=== PATIENT | male | born 1960 | race Caucasian/White ===

== ENCOUNTER 2017-02-14 10:41 | Emergency (ER) | payer OTHER ==
[~2017-02-14] VITALS: Ht 193 cm; Wt 120.2 kg
[~2017-02-14 10:41] MED LIST: ADVIL200 M2 PO; ANTIVERT 25 MG25 M1 PO; COLCRYS0.6 M1 PO; LIPITOR40 M1 PO; PERCOCET 325 MG1 TA2 PO; PROTONIX 40MG T40 MG PO; VITAMIN B-121000 MC3 PO; ZYRTEC10 M3 PO
--- NOTE | 2017-02-14 11:31 | ED GENERAL ADULT ---
History of Present Illness General Chief Complaint: Foot or Ankle Injury Stated Complaint: LEFT FOOT PAIN X2 DAYS Source: patient Exam Limitations: no limitations Vital Signs & Intake/Output Vital Signs & Intake/Output Vital Signs Date Time Temp Pulse Resp B/P B/P Pulse O2 O2 Flow FiO2 Mean Ox Delivery Rate 02/14 1252 98.7 85 18 134/80 96 Room Air 02/14 1102 98.3 84 20 157/80 96 Room Air Allergies Coded Allergies: naproxen (From NAPROSYN) (ABD PAIN 12/02/15) Reconcile Medications Atorvastatin Calcium (Lipitor) 40 MG TABLET 1 TAB PO DAILY CHOLESTEROL ( Reported) Cetirizine HCl (Zyrtec) 10 MG TABLET 1 TAB PO DAILY ALLERGIES (Reported) Colchicine (Colcrys) 0.6 MG TABLET 1 TAB PO DAILY PRN GOUT (Reported) Cyanocobalamin (Vitamin B-12) 1,000 MCG TABLET 1 TAB PO DAILY VITAMIN SUPPORT (Reported) Ibuprofen (Advil) 200 MG TABLET 4 TAB PO DAILY PRN PAIN (Reported) Oxycodone HCl/Acetaminophen (Percocet 5-325 MG Tablet) 5 MG-325 MG TABLET 1 TAB PO BID PAIN Triage Note: PT TO ED C/O LEFT FOOT PAIN X 2 DAYS, STATES BOTTOM OF FOOT HURTS. DENIES OBVIOUS INJURY. PT STATES 1 WEEK AGO PAIN WAS IN HIS ANKLE, PAIN IS BETTER IN THE ANKLE. DECLINING MEDS IN TRIAGE, TOOK 800MG MOTRIN AT 0730 THIS AM. PAIN TO BOTTOM OF FOOT IS WORSE THIS FLEXION AND WEIGHT BEARING. Triage Nurses Notes Reviewed? yes Onset: Abrupt Duration: day(s): Timing: recent history HPI: 02/12/17 12 PM 56-year-old man who presents to the emergency department complaining of severe pain to the left heel. According to the patient he was in his usual state of health until approximately 24 hours ago. He says that he did recently sprain his ankle and this is improved however he is having severe pain to the left lower aspect of his foot. It is extremely painful when he bears weight. The onset of symptoms was abrupt, the duration has been approximately 48 hours, the severity is significant; as his symptoms required to come to the emergency department for care. He has localized tenderness to the left fifth metatarsal head. Past History Travel History Traveled to [place] past 21 day No Medical History Any Pertinent Medical History? see below for history Neurological: HNPP Gastrointestinal: GERD Surgical History Surgical History: non-contributory Psychosocial History What is your primary language Mozambican Tobacco Use: Quit >30 days ago ETOH Use: occasional use Illicit Drug Use: denies illicit drug use Family History Hx Contributory? No Review of Systems Review of Systems Constitutional: Denies: fever. EENTM: Reports: no symptoms. Respiratory: Reports: no symptoms. Cardiovascular: Reports: no symptoms. GI: Reports: no symptoms. Genitourinary: Reports: no symptoms. Musculoskeletal: Reports: see HPI. Skin: Reports: no symptoms. Neurological/Psychological: Reports: no symptoms. Hematologic/Endocrine: Reports: no symptoms. Immunologic/Allergic: Reports: no symptoms. Physical Exam Physical Exam General Appearance: well developed/nourished, alert, awake, anxious, mild distress Head: atraumatic, normal appearance Eyes: Bilateral: normal appearance, PERRL, EOMI. Ears, Nose, Throat: normal ENT inspection Neck: normal inspection, full range of motion Respiratory: no respiratory distress Cardiovascular: regular rate/rhythm Peripheral Pulses: 4+ dorsalis pedis (L) Back: normal range of motion Extremities: tenderness Neurologic/Psych: no motor/sensory deficits, awake, alert, oriented x 3 Skin: intact, normal color, warm/dry Comments: 02/14/17 The patient does have significant tenderness to the plantar aspect of the left foot. He has an antalgic gait secondary to the above. 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 No CVA/TIA Diagnosis: No Severe Sepsis Present: No Septic Shock Present: No Progress Differential Diagnoses I considered the following diagnoses in my evaluation of the patient: [Plantar fasciitis, stress fracture, fifth metatarsal fracture, arthritis, Lyme disease,] Plan of Care: Orders Procedure Date/time Status XRY-FOOT COMPLETE, LEFT 02/14 1152 Active Current Medications Sig/Edilma Start time Last Medication Dose Stop Time Status Admin Tramadol HCl 50 MG ONCE ONE 02/14 1200 UNVr (Ultram) 02/14 1201 Initial ED EKG: none Departure Departure Disposition: HOME OR SELF CARE Condition: Stable Clinical Impression Primary Impression: Plantar fasciitis of left foot Referrals: KALI WEBSTER DO (PCP/Family) Departure Forms: Customer Survey General Discharge Information Prescriptions: Current Visit Scripts Oxycodone HCl/Acetaminophen (Percocet 5-325 MG Tablet) 1 TAB PO BID #10 TAB Comments He has a past medical history of hereditary neuropathy with pressure palsies X-ray results shown below PATIENT: CADEN ALEMAN PRESENT AGE: 56 PATIENT ACCOUNT NO: [id number] : 61 LOCATION: [facility] ORDERING PHYSICIAN: DEVON UGARTE DO SERVICE DATE: 02/14/17 EXAM TYPE: RAD - XRY-FOOT COMPLETE, LEFT EXAMINATION: XR FOOT, LEFT CLINICAL INFORMATION: Left foot pain. COMPARISON: None TECHNIQUE: AP, lateral, and oblique views of the left foot. FINDINGS: No acute fracture or malalignment. Bones are osteopenic. There is mild degenerative arthritis in the tarsometatarsal joints and at the articulation of the bases of the metatarsals. Mild degenerative arthritis is present at the first MTP joint. No erosions. Degenerative arthritis is present in the talocrural joint. Soft tissue swelling is present around the ankle. Moderate sized enthesopathic spur is present at the Achilles tendon insertion on the calcaneus. Small enthesopathic spur is present at the plantar fascial origin on the calcaneus. IMPRESSION: 1. No acute fracture or malalignment. 2. 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 3. Large enthesopathic spur at the Achilles tendon insertion. DICTATED BY: PALAK MENDIOLA MD DATE/TIME DICTATED:02/14/171257 MANAGER ANALYSIS:KIM DATE/TIME TRANSCRIBED:02/14/171257 CONFIDENTIAL, DO NOT COPY WITHOUT APPROPRIATE AUTHORIZATION. <Electronically signed in Other Vendor System> SIGNED BY: PALAK MENDIOLA MD 02/14/17 1303 Now he's got a prescription to follow-up with Dr. Ramirez keep the foot elevated and by Dr. Miranda Critical Care Note Critical Care Note Critical Care Time: non-applicable
[2017-02-14 12:52] VITALS: BP 134/80
--- NOTE | 2017-02-14 13:03 | RADIOLOGY REPORT ---
EXAMINATION: XR FOOT, LEFT CLINICAL INFORMATION: Left foot pain. COMPARISON: None TECHNIQUE: AP, lateral, and oblique views of the left foot. FINDINGS: No acute fracture or malalignment. Bones are osteopenic. There is mild degenerative arthritis in the tarsometatarsal joints and at the articulation of the bases of the metatarsals. Mild degenerative arthritis is present at the first MTP joint. No erosions. Degenerative arthritis is present in the talocrural joint. Soft tissue swelling is present around the ankle. Moderate sized enthesopathic spur is present at the Achilles tendon insertion on the calcaneus. Small enthesopathic spur is present at the plantar fascial origin on the calcaneus. IMPRESSION: 1. No acute fracture or malalignment. 2. 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 3. Large enthesopathic spur at the Achilles tendon insertion.
[2017-02-14] MEDS ORDERED: PERCOCET 5-3251 EACH PO (13:13)
== END 2017-02-14 13:23 ==
LOC: ERH 10:41
DX: M72.2 Plantar fascial fibromatosis (principal)
CPT/HCPCS: 73630-LT; J3101

== ENCOUNTER 2017-02-19 08:20 | Emergency (ER) | payer OTHER ==
[~2017-02-19] VITALS: Ht 193 cm; Wt 120.2 kg
[~2017-02-19 08:20] MED LIST changes: +PERCOCET 5-3251 EACH PO
--- NOTE | 2017-02-19 08:51 | ED EYE COMPLAINT ---
History of Present Illness General Chief Complaint: Eye Problems Stated Complaint: EYE SWELLING Source: patient, family Exam Limitations: no limitations Vital Signs & Intake/Output Vital Signs & Intake/Output Vital Signs Date Time Temp Pulse Resp B/P B/P Pulse O2 O2 Flow FiO2 Mean Ox Delivery Rate 02/19 0923 99.0 84 18 138/86 98 Room Air 02/19 0825 98.7 72 16 152/97 99 Room Air Allergies Coded Allergies: naproxen (From NAPROSYN) (ABD PAIN 12/02/15) Reconcile Medications Atorvastatin Calcium (Lipitor) 40 MG TABLET 1 TAB PO DAILY CHOLESTEROL ( Reported) Cetirizine HCl (Zyrtec) 10 MG TABLET 1 TAB PO DAILY ALLERGIES (Reported) Clindamycin HCl 150 MG CAPSULE 1 CAP PO Q8 ANTIBIOTIC, INFECTION (Reported) Colchicine (Colcrys) 0.6 MG TABLET 1 TAB PO DAILY PRN GOUT (Reported) Cyanocobalamin (Vitamin B-12) 1,000 MCG TABLET 1 TAB PO DAILY VITAMIN SUPPORT (Reported) Ibuprofen (Advil) 200 MG TABLET 4 TAB PO DAILY PRN PAIN (Reported) Triage Note: PT STATES HIS EYE SWELLING HAS GOTTEN WORSE. PT SAW HIS PCP ON MONDAY AND STATES HE THOUGHT HE HAD GOTTEN BITTEN BY SOMETHING. PT WAS PLACED ON CLINDAMYCIN ON MONDAY AND HAS BEEN TAKING EVERY 8HOURS BUT NOW ITS. GETTING WORSE. Triage Nurses Notes Reviewed? yes HPI: 3 days ago patient noticed that around his right eye felt numb and then 2 days ago he had a painful bump in his right eyebrow. Patient saw his primary care physician who thought it might of been cellulitis from a bug bite so started him on clindamycin. He was also told that if the pain or swelling increased to go to the emergency room. This morning he woke up and his right eye was swollen and he had a rash above his right eye as well as on the tip of his nose. The rash is very painful and he has a burning sensation to the right side of his forehead. The pain is 8 out of 10. The pain is constant. The pain worsens whenever he touches anywhere to the area. Patient states that he feels like a pressure sensation is behind his right eye. Patient has chronic blurry vision on his right eye from a scratch across his cornea from a very bad case of pinkeye 20 years ago. There are no fevers or chills. There is no radiation of the pain outside of the forehead area. Past History Travel History Traveled to [place] past 21 day No Medical History Any Pertinent Medical History? see below for history Neurological: HNPP Gastrointestinal: GERD Other Medical Hx: CHICKEN POX A CHILD Surgical History Surgical History: non-contributory Psychosocial History What is your primary language Bangladeshi Tobacco Use: Quit >30 days ago ETOH Use: occasional use Illicit Drug Use: denies illicit drug use Family History Hx Contributory? No Review of Systems Review of Systems Constitutional: Reports: no symptoms. Eyes: Reports: see HPI, pain. Ear: Reports: no symptoms. Nose: Reports: see HPI. Mouth: Reports: no symptoms. Throat: Reports: no symptoms. Respiratory: Reports: no symptoms. Cardiovascular: Reports: no symptoms. GI: Reports: no symptoms. Musculoskeletal: Reports: no symptoms. Skin: Reports: no symptoms. Neurological/Psychological: Reports: no symptoms. Immunologic/Allergic: Reports: no symptoms. Physical Exam General Appearance: well developed/nourished, alert, awake, anxious, mild distress General Inspection: normal inspection Eyelid: normal inspection Conjunctiva/Sclera: normal inspection Cornea: normal inspection EOM: intact Pupil: normal accommodation, normal pupil, PERRL General Inspection: HERPETIC LESSIONS ABOVE EYE Eyelid: normal inspection Conjunctiva/Sclera: normal inspection Cornea: normal inspection EOM: intact Pupil: normal accommodation, normal pupil, PERRL Anterior Chamber: normal inspection Posterior Segments: normal funduscopic Physical Exam Head: atraumatic, normal appearance Ears: Bilateral: canal normal, Tympanic normal. Nose: HERPETIC LESSION TO TIP OF NOSE Mouth/Throat: normal mouth inspection, pharynx normal Neck: supple, lymphadenopathy (L) Cardiovascular/Respiratory: normal breath sounds, normal peripheral pulses, regular rate/rhythm Neurologic/Psych: no motor/sensory deficits, awake, alert, oriented x 3, normal gait, normal mood/affect Skin: rash Progress Differential Diagnosis: ZOSTER, ORBITAL CELLULTIS Plan of Care: Orders Procedure Date/time Status COMPREHENSIVE METABOLIC PANEL 02/19 0844 Complete CBC WITHOUT DIFFERENTIAL 02/19 0844 Complete Laboratory Tests 02/19/17 0850: Anion Gap 11, Estimated GFR > 60, BUN/Creatinine Ratio 18.6, Glucose 110 H, Calcium 9.1, Total Bilirubin 0.6, AST 25, ALT 35, Alkaline Phosphatase 49, Total Protein 6.2 L, Albumin 3.9, Globulin 2.3, Albumin/Globulin Ratio 1.7, CBC w Diff NO MAN DIFF REQ, RBC 4.48 L, MCV 91.0, MCH 30.4, RDW 14.4, MPV 7.0 L, Gran % 64.5, Lymphocytes % 21.8, Monocytes % 7.1, Eosinophils % 6.3 H, Basophils % 0.3, Absolute Granulocytes 3.8, Absolute Lymphocytes 1.3, Absolute Monocytes 0.4, Absolute Eosinophils 0.4, Absolute Basophils 0, PUBS MCHC 33.4 Diagnostic Imaging: Viewed by Me: CT Scan. Discussed w/RAD: CT Scan. Radiology Impression: PATIENT: CADEN ALEMAN PRESENT AGE: 56 PATIENT ACCOUNT NO: [id number] : 61 LOCATION: [facility] ORDERING PHYSICIAN: MYRTLE JASMINE MD SERVICE DATE: 02/19/17 EXAM TYPE: CAT - CT ORBITS W IV CONTRAST EXAMINATION: CT ORBIT WITH CONTRAST CLINICAL INFORMATION: Right orbital pain and swelling. Possible cellulitis. COMPARISON: CT brain without contrast 12/02/2015. TECHNIQUE: CT orbits is performed in the axial plane using 95 mL Optiray 320 intravenous contrast. Additional 2-D coronal and sagittal reformatted images are generated on the CT workstation. DLP: 208 mGy-cm FINDINGS: There is mild soft tissue swelling overlying the right orbit and right malar region. The globes and retrobulbar soft tissues appear normal. There is no orbital emphysema. No thrombophlebitis. There is no fluid collection or abscess in the facial soft tissues. No gas tracking in the soft tissues. The infratemporal fossa appears normal on each side. The bony structures show no fracture or sclerosis or destructive process. There are no air-fluid levels within the sinuses or visualized middle ears or mastoid air cells. There is mucosal thickening involving the right frontal sinus, scattered throughout the ethmoidal air cells, and involving the sphenoid sinus, greater on right. There is a polyploid lesion or retention cyst in the superior right maxillary sinus measuring 11 x 12 mm. IMPRESSION: 1. Mild soft tissue swelling overlying right orbit and right malar region. No fluid collection/abscess or thrombophlebitis. 2. Globes and retrobulbar soft tissues are normal. 3. Scattered mucosal thickening sinuses. No air-fluid levels. DICTATED BY: LG MARTINEZ MD DATE/ TIME DICTATED:02/19/171039 FABRIC SOURCER:KIM DATE/TIME TRANSCRIBED: 02/19/171039 CONFIDENTIAL, DO NOT COPY WITHOUT APPROPRIATE AUTHORIZATION. < Electronically signed in Other Vendor System> SIGNED BY: LG AMRTINEZ MD 02/19/17 1057 Departure Departure Disposition: HOME OR SELF CARE Condition: Stable Clinical Impression Primary Impression: Zoster conjunctivitis Referrals: KALI WEBSTER DO (PCP/Family) Additional Instructions: follow up with your eye doctor tomorrow take meds as prescribed return for any concerns Departure Forms: Customer Survey General Discharge Information Prescriptions: Current Visit Scripts Valacyclovir HCl (Valtrex) 1 TAB PO TID #21 TAB Pregabalin (Lyrica) 1 CAP PO BID #60 CAP Oxycodone HCl/Acetaminophen (Percocet 5-325 MG Tablet) 1-2 TAB PO Q6P PRN PAIN #20 TAB
[2017-02-19] MEDS ORDERED: CLINDAMYCIN HC150 M1 PO (08:58)
[2017-02-19 09:09] LABS: ABSOLUTE BASOPHIL COUNT 0 /CUMM (0.0-0.2); ABSOLUTE EOSINOPHIL COUNT 0.4 /CUMM (0.0-0.7); ABSOLUTE GRANULOCYTE CT 3.8 /CUMM (1.4-6.5); ABSOLUTE LYMPH COUNT 1.3 /CUMM (1.2-3.4); ABSOLUTE MONOCYTE COUNT 0.4 /CUMM (0.10-0.60); BASOPHIL % 0.3 % (0.0-2.0); EOSINOPHIL % 6.3 % (0-5); GRANULOCYTE % 64.5 % (42.2-75.2); HEMATOCRIT 40.8 % (42-52); MEAN CORPUSCULAR HGB 30.4 PG (27.0-31.0); MEAN CORPUSCULAR HGB CONC 33.4 G/DL (33.0-37.0); PLATELET COUNT 210 /CUMM (130-400); RBC DISTRIBUTION WIDTH 14.4 % (11.5-14.5); RED BLOOD CELL CT 4.48 /CUMM (4.70-6.10); WHITE BLOOD CELL COUNT 5.9 /CUMM (4.8-10.8)
--- NOTE | 2017-02-19 10:57 | CT SCAN REPORT ---
EXAMINATION: CT ORBIT WITH CONTRAST CLINICAL INFORMATION: Right orbital pain and swelling. Possible cellulitis. COMPARISON: CT brain without contrast 12/02/2015. TECHNIQUE: CT orbits is performed in the axial plane using 95 mL Optiray 320 intravenous contrast. Additional 2-D coronal and sagittal reformatted images are generated on the CT workstation. DLP: 208 mGy-cm FINDINGS: There is mild soft tissue swelling overlying the right orbit and right malar region. The globes and retrobulbar soft tissues appear normal. There is no orbital emphysema. No thrombophlebitis. There is no fluid collection or abscess in the facial soft tissues. No gas tracking in the soft tissues. The infratemporal fossa appears normal on each side. The bony structures show no fracture or sclerosis or destructive process. There are no air-fluid levels within the sinuses or visualized middle ears or mastoid air cells. There is mucosal thickening involving the right frontal sinus, scattered throughout the ethmoidal air cells, and involving the sphenoid sinus, greater on right. There is a polyploid lesion or retention cyst in the superior right maxillary sinus measuring 11 x 12 mm. IMPRESSION: 1. Mild soft tissue swelling overlying right orbit and right malar region. No fluid collection/abscess or thrombophlebitis. 2. Globes and retrobulbar soft tissues are normal. 3. Scattered mucosal thickening sinuses. No air-fluid levels.
[2017-02-19] MEDS ORDERED: PERCOCET 5-3251 EACH PO (11:09)
[2017-02-19] MEDS ORDERED: VALTREX1000 MG PO (11:09)
[2017-02-19] MEDS ORDERED: LYRICA75 M1 PO (11:09)
[2017-02-19 11:12] VITALS: BP 130/80
== END 2017-02-19 11:17 ==
LOC: ERH 08:20
PROVIDERS: Emergency Medicine
DX: B02.31 Zoster conjunctivitis (principal)
CPT/HCPCS: J3490

== ENCOUNTER 2018-01-11 16:48 | Emergency (ER) | payer OTHER ==
[~2018-01-11] VITALS: Ht 193 cm; Wt 113.4 kg
[~2018-01-11 16:48] MED LIST changes: +CLINDAMYCIN HC150 M1 PO; +ESCITALOPRAM OX10 MG PO; +GABAPENTIN300 M2 PO; +LEVSIN-SL0.125 MG SL; +LYRICA75 M1 PO; +PRAZOSIN HCL1 M1 PO; +RISPERIDONE0.5 M1 PO; +VALTREX1000 MG PO; +VOLTAREN100 GM TOP
[2018-01-11 17:32] LABS: ABSOLUTE BASOPHIL COUNT 0 /CUMM (0.0-0.2); ABSOLUTE EOSINOPHIL COUNT 0.2 /CUMM (0.0-0.7); ABSOLUTE GRANULOCYTE CT 7.3 /CUMM (1.4-6.5); ABSOLUTE LYMPH COUNT 2.2 /CUMM (1.2-3.4); ABSOLUTE MONOCYTE COUNT 0.6 /CUMM (0.10-0.60); BASOPHIL % 0.2 % (0.0-2.0); EOSINOPHIL % 2.4 % (0-5); GRANULOCYTE % 70.6 % (42.2-75.2); HEMATOCRIT 41.2 % (42-52); MEAN CORPUSCULAR HGB 29.7 PG (27.0-31.0); MEAN CORPUSCULAR HGB CONC 32.8 G/DL (33.0-37.0); MEAN CORPUSCULAR VOLUME 90.3 FL (80.0-94.0); MEAN PLATELET VOLUME 7.3 FL (7.4-10.4); PLATELET COUNT 238 /CUMM (130-400); RBC DISTRIBUTION WIDTH 15.6 % (11.5-14.5); RED BLOOD CELL CT 4.56 /CUMM (4.70-6.10); WHITE BLOOD CELL COUNT 10.4 /CUMM (4.8-10.8)
--- NOTE | 2018-01-11 18:24 | RADIOLOGY REPORT ---
EXAMINATION: CHEST 2 VIEWS CLINICAL INFORMATION: Pain following endoscopy. COMPARISON: 01/03/2018. TECHNIQUE: PA and lateral views of the chest were obtained. FINDINGS: The cardiac silhouette is not enlarged. The mediastinal and hilar contours are unremarkable. There are neither pleural effusions nor pneumothoraces. There are no consolidations. The osseous structures are unremarkable. IMPRESSION: No evidence for acute disease.
== END 2018-01-11 18:22 | disposition admitted as inpatient to this hospital (09) ==
LOC: ERH 16:48
PROVIDERS: Physician Assistant Medical
DX: G89.18 Other acute postprocedural pain (principal); R11.10 Vomiting, unspecified
CPT/HCPCS: 71046; 80307; 99281